=== PATIENT | male | born 1945 | race Caucasian/White ===

== ENCOUNTER 2017-05-20 18:27 | Observation (INO) | payer OTHER ==
[~2017-05-20] VITALS: Ht 172.7 cm; Wt 123.0 kg
[~2017-05-20 18:27] MED LIST: PAXIL40 MG PO; SEROQUEL12.5 MG PO
[2017-05-20 20:23] LABS: CHLORIDE 97 mEq/L (99-109)
[2017-05-20 20:26] LABS: ANION GAP 12 MEQ/L (2-14)
[2017-05-20 20:27] LABS: SODIUM 130 mEq/L (136-147)
[2017-05-20 20:29] LABS: GFR ESTIMATE (CALCULATED) 35 mL/min/
[2017-05-20 20:30] LABS: UREA NITROGEN (BUN) 53 mg/dL (9-23)
[2017-05-20 20:42] LABS: GLUCOSE 589 mg/dL (70-99)
[2017-05-20 21:07] LABS: SAMPLE HEMOLYSIS CHECK 0; SAMPLE ICTERIC CHECK 0; SAMPLE LIPEMIA CHECK 0
[2017-05-20 21:26] LABS: HEMATOCRIT 36.5 % (38.0-50.0); MCH 28.5 PG (29.0-34.0); MCHC 34.2 G/DL (30.0-36.0); MCV 83.1 FL (86-99); MEAN PLAT.VOLUME 11.6 uM^3 (9.0-12.4); PLATELET COUNT 242 K/uL (156-360); RBC DIS.WIDTH-CV 11.7 % (11.8-14.6); RBC DIS.WIDTH-SD 35.4 % (39-53); RED BLOOD COUNT 4.39 M/uL (4.00-5.50); WHITE BLOOD COUNT 6.4 K/uL (4.1-10.2)
[2017-05-20 21:28] LABS: ADD MIUA? YES; BILIRUBIN NEGATIVE; BLOOD SMALL; COLOR STRAW ((YELLOW)); GLUCOSE (STRIP) >=500; KETONES NEGATIVE; LEUKOCYTES NEGATIVE; NITRITE NEGATIVE; PROTEIN (STRIP) NEGATIVE; SPECIFIC GRAVITY 1.023 (1.000-1.030); UROBILINOGEN 0.2 MG/DL (0.2-1.0)
[2017-05-20 21:33] LABS: BACTERIA NONE SEEN /HPF; EPITHELIAL CELLS NONE SEEN /HPF; MUCUS NONE SEEN /LPF; RED BLOOD CELLS 0-5 /HPF (0-5); UCUL ADDED? YES
[2017-05-20] MEDS ORDERED: ASPIRIN325 MG PO (23:28)
[2017-05-20] MEDS ORDERED: GARLIC500 MG PO (23:29)
[2017-05-20] MEDS ORDERED: NOVOLOG100 UNIT/1 SC (23:30)
[2017-05-20] MEDS ORDERED: FENOFIBRATE160 M1 PO (23:32)
[2017-05-20] MEDS ORDERED: CINNAMON BARK500 MG PO (23:33)
[2017-05-20] MEDS ORDERED: LANTUS 3 M100 UNITS1 SC (23:35)
[2017-05-20] MEDS ORDERED: DOXAZOSIN MESYLA2 MG PO (23:36)
[2017-05-20] MEDS ORDERED: TELMISARTAN-AM1 EACH PO (23:36)
[2017-05-20] MEDS ORDERED: VICTOZA 2-0.6 MG/0.1 SC (23:37)
[2017-05-20] MEDS ORDERED: LOSARTAN POTASS50 MG PO (23:37)
[2017-05-21 02:15] LABS: POINT-OF-CARE METER ID UU13113702
[2017-05-21 03:41] VITALS: BP 178/79
[2017-05-21 04:34] LABS: POINT-OF-CARE METER ID UU13113700
[2017-05-21 04:53] VITALS: BP 188/77
[2017-05-21 05:33] LABS: POINT-OF-CARE METER ID UU13113700
[2017-05-21 07:29] LABS: Estimated Average Glucose 266 mg/dL (70-123)
[2017-05-21 08:02] LABS: HEMOGLOBIN A1c (GLYCOHEMOGLOB) 10.9 % HGB (Below 5.7)
[2017-05-21 08:30] VITALS: BP 176/80
[2017-05-21 09:21] LABS: HEMATOCRIT 34.9 % (38.0-50.0); MCH 28.1 PG (29.0-34.0); MCHC 33.5 G/DL (30.0-36.0); MCV 83.7 FL (86-99); MEAN PLAT.VOLUME 11.4 uM^3 (9.0-12.4); PLATELET COUNT 233 K/uL (156-360); RBC DIS.WIDTH-CV 11.8 % (11.8-14.6); RED BLOOD COUNT 4.17 M/uL (4.00-5.50); WHITE BLOOD COUNT 6.3 K/uL (4.1-10.2)
[2017-05-21 09:46] LABS: ANION GAP 6 MEQ/L (2-14); GLUCOSE 296 mg/dL (70-99); POTASSIUM 4.3 MEQ/L (3.7-5.4); SAMPLE HEMOLYSIS CHECK 0; SAMPLE ICTERIC CHECK 0; SAMPLE LIPEMIA CHECK 0; SODIUM 136 MEQ/L (136-147); UREA NITROGEN (BUN) 35 mg/dL (9-23)
[2017-05-21 09:52] LABS: CHLORIDE 104 MEQ/L (99-109); GFR ESTIMATE (CALCULATED) 58 mL/min/
[2017-05-21 13:22] LABS: POINT-OF-CARE METER ID UU13113700
[2017-05-21 16:49] VITALS: BP 171/68
[2017-05-21 18:01] LABS: POINT-OF-CARE METER ID UU13113700
[2017-05-21 20:00] VITALS: BP 132/61
[2017-05-21 23:33] VITALS: BP 138/63
[2017-05-21 23:48] LABS: POINT-OF-CARE METER ID UU13113700
[2017-05-22 05:29] LABS: HEMATOCRIT 36.3 % (38.0-50.0); MCH 27.9 PG (29.0-34.0); MCHC 32.8 G/DL (30.0-36.0); MEAN PLAT.VOLUME 11.1 uM^3 (9.0-12.4); PLATELET COUNT 242 K/uL (156-360); RBC DIS.WIDTH-SD 36.8 % (39-53); RED BLOOD COUNT 4.27 M/uL (4.00-5.50); WHITE BLOOD COUNT 6.7 K/uL (4.1-10.2)
[2017-05-22 06:09] LABS: ANION GAP 7 MEQ/L (2-14); CHLORIDE 106 MEQ/L (99-109); GFR ESTIMATE (CALCULATED) 42 mL/min/; GLUCOSE 145 mg/dL (70-99); POTASSIUM 4.4 MEQ/L (3.7-5.4); SAMPLE HEMOLYSIS CHECK 0; SAMPLE ICTERIC CHECK 0; SAMPLE LIPEMIA CHECK 0; SODIUM 135 MEQ/L (136-147); UREA NITROGEN (BUN) 33 mg/dL (9-23)
[2017-05-22 08:10] VITALS: BP 107/58
[2017-05-22 08:47] LABS: POINT-OF-CARE METER ID UU13113831
[2017-05-22] MEDS ORDERED: NOVOLOG 10100 UNITS/ SC (12:46)
[2017-05-22] MEDS ORDERED: LEVEMIR100 UNIT/2 SC (12:46)
[2017-05-22] MEDS ORDERED: INVANZ1 GM IV (12:49)
[2017-05-22 12:54] LABS: POINT-OF-CARE METER ID UU14162513
[2017-05-22 13:12] VITALS: BP 177/85
[2017-05-22 15:45] VITALS: BP 123/61
[2017-05-22 15:58] LABS: POINT-OF-CARE METER ID UU14162513
== END 2017-05-22 16:00 ==
LOC: EME 18:27 → EDOF 05-21 01:34 → 5WEST 05-21 01:34 → EDOF 05-21 01:34 → ENRESERV 05-21 01:39 → 5WEST 05-21 03:30 → ENPENDDIS 05-22 16:00 → 5WEST 05-22 16:00
PROVIDERS: Emergency Medicine; Hospitalist; Physician Assistant Medical
DX: E11.65 Type 2 diabetes mellitus with hyperglycemia (principal); T38.3X6A Underdosing of insulin and oral hypoglycemic [antidiabetic] drugs, initial encounter; Z91.128 Patient's intentional underdosing of medication regimen for other reason; S80.212A Abrasion, left knee, initial encounter; S80.211A Abrasion, right knee, initial encounter; W19.XXXA Unspecified fall, initial encounter; Z91.81 History of falling; Y93.89 Activity, other specified; Y92.230 Patient room in hospital as the place of occurrence of the external cause; E86.0 Dehydration; N17.9 Acute kidney failure, unspecified; E87.5 Hyperkalemia; K21.9 Gastro-esophageal reflux disease without esophagitis; D64.9 Anemia, unspecified; E87.1 Hypo-osmolality and hyponatremia; E66.01 Morbid (severe) obesity due to excess calories; I12.9 Hypertensive chronic kidney disease with stage 1 through stage 4 chronic kidney disease, or unspecified chronic kidney disease; E11.22 Type 2 diabetes mellitus with diabetic chronic kidney disease; N18.9 Chronic kidney disease, unspecified; J11.1 Influenza due to unidentified influenza virus with other respiratory manifestations; E78.5 Hyperlipidemia, unspecified; Z79.82 Long term (current) use of aspirin; Z85.820 Personal history of malignant melanoma of skin; Z79.4 Long term (current) use of insulin; Z91.09 Other allergy status, other than to drugs and biological substances; Z88.8 Allergy status to other drugs, medicaments and biological substances
CPT/HCPCS: 71010; 80048; 81003; 82010; 82803; 82948; 83036; 83605; 85027; 87086; 87106; 87502; 99281; 99285; G0378; G8978 GP CJ; G8979 GP CI; G8980 CJ; G8987 GO CJ; G8988 CI; G8989 CJ; J0360; J1335; J1644; J1815; J2405; J7030; J7050

== ENCOUNTER 2017-05-22 16:14 | Inpatient (IN) | payer OTHER ==
[~2017-05-22] VITALS: Ht 172.7 cm; Wt 112.2 kg
[~2017-05-22 16:14] MED LIST changes: +ASPIRIN325 MG PO; +CINNAMON BARK500 MG PO; +DOXAZOSIN MESYLA2 MG PO; +FENOFIBRATE160 M1 PO; +GARLIC500 MG PO; +INVANZ1 GM IV; +LANTUS 3 M100 UNITS1 SC; +LEVEMIR100 UNIT/2 SC; +LOSARTAN POTASS50 MG PO; +NOVOLOG 10100 UNITS/ SC; +NOVOLOG100 UNIT/1 SC; +TELMISARTAN-AM1 EACH PO; +VICTOZA 2-0.6 MG/0.1 SC
[2017-05-22 16:35] VITALS: BP 128/82
[2017-05-22 21:21] LABS: POINT-OF-CARE METER ID UU13113720
[2017-05-23 02:34] VITALS: BP 144/70
[2017-05-23 06:13] LABS: HEMATOCRIT 34.6 % (38.0-50.0); MCH 28.2 PG (29.0-34.0); MCHC 32.7 G/DL (30.0-36.0); MCV 86.3 FL (86-99); MEAN PLAT.VOLUME 11.4 uM^3 (9.0-12.4); PLATELET COUNT 220 K/uL (156-360); RBC DIS.WIDTH-CV 12.1 % (11.8-14.6); RBC DIS.WIDTH-SD 38.5 % (39-53); RED BLOOD COUNT 4.01 M/uL (4.00-5.50); WHITE BLOOD COUNT 4.8 K/uL (4.1-10.2)
[2017-05-23 06:17] VITALS: BP 143/67
[2017-05-23 06:55] LABS: ALKALINE PHOSPHATASE 74 IU/L (3-129); ANION GAP 6 MEQ/L (2-14); CHLORIDE 107 MEQ/L (99-109); GFR ESTIMATE (CALCULATED) 37 mL/min/; GLUCOSE 144 mg/dL (70-99); POTASSIUM 4.6 MEQ/L (3.7-5.4); SAMPLE HEMOLYSIS CHECK 0; SAMPLE ICTERIC CHECK 0; SAMPLE LIPEMIA CHECK 0; SODIUM 137 MEQ/L (136-147); TOTAL BILIRUBIN 0.3 MG/DL (0.0-1.0); UREA NITROGEN (BUN) 40 mg/dL (9-23)
[2017-05-23 08:01] LABS: POINT-OF-CARE METER ID UU14174215; POINT-OF-CARE USER ID AHSSSJB31
[2017-05-23 10:50] LABS: POINT-OF-CARE METER ID UU14174215
[2017-05-23 11:15] LABS: POINT-OF-CARE METER ID UU13113720; POINT-OF-CARE USER ID AHSSSJB31
[2017-05-23 15:49] VITALS: BP 128/56
[2017-05-23 16:32] LABS: POINT-OF-CARE METER ID UU13113720
[2017-05-23 21:20] LABS: POINT-OF-CARE METER ID UU14174215
[2017-05-24 05:24] VITALS: BP 14/62
[2017-05-24 07:02] LABS: POINT-OF-CARE METER ID UU14174215; POINT-OF-CARE USER ID ENVGAF
[2017-05-24 07:30] LABS: UREA NITROGEN (BUN) 39 mg/dL (9-23)
[2017-05-24 07:31] LABS: ANION GAP 5 MEQ/L (2-14); CHLORIDE 109 MEQ/L (99-109); GFR ESTIMATE (CALCULATED) 40 mL/min/; POTASSIUM 4.4 MEQ/L (3.7-5.4); SAMPLE HEMOLYSIS CHECK 0; SAMPLE ICTERIC CHECK 0; SAMPLE LIPEMIA CHECK 0; SODIUM 140 MEQ/L (136-147)
[2017-05-24 07:32] LABS: GLUCOSE 105 mg/dL (70-99)
[2017-05-24 12:04] LABS: POINT-OF-CARE METER ID UU14174215; POINT-OF-CARE USER ID ENVGAF
[2017-05-24 15:51] VITALS: BP 130/60
[2017-05-24 16:29] LABS: POINT-OF-CARE METER ID UU13113720
[2017-05-24 21:04] LABS: POINT-OF-CARE METER ID UU14174215
[2017-05-25 05:24] VITALS: BP 139/60
[2017-05-25 07:08] LABS: POINT-OF-CARE METER ID UU14174215; POINT-OF-CARE USER ID ENVGAF
[2017-05-25 11:17] LABS: POINT-OF-CARE METER ID UU14174215; POINT-OF-CARE USER ID ENVGAF
[2017-05-25 17:00] LABS: POINT-OF-CARE METER ID UU14174215; POINT-OF-CARE USER ID 609231305
[2017-05-25 17:05] VITALS: BP 151/69
[2017-05-25 21:42] LABS: POINT-OF-CARE METER ID UU13113720
[2017-05-26 04:48] VITALS: BP 122/75
[2017-05-26 07:04] LABS: POINT-OF-CARE METER ID UU14174215; POINT-OF-CARE USER ID AHSSSJB31
[2017-05-26 11:43] LABS: POINT-OF-CARE METER ID UU14174215; POINT-OF-CARE USER ID AHSSSJB31
[2017-05-26 15:30] VITALS: BP 145/65
[2017-05-26 16:22] LABS: POINT-OF-CARE METER ID UU14174215; POINT-OF-CARE USER ID 609231305
[2017-05-26 21:40] LABS: POINT-OF-CARE METER ID UU14174215
[2017-05-27 05:11] VITALS: BP 118/63
[2017-05-27 07:23] LABS: HEMATOCRIT 37.9 % (38.0-50.0); MCH 27.5 PG (29.0-34.0); MCHC 31.7 G/DL (30.0-36.0); MCV 86.7 FL (86-99); MEAN PLAT.VOLUME 11.8 uM^3 (9.0-12.4); PLATELET COUNT 232 K/uL (156-360); RBC DIS.WIDTH-CV 12.3 % (11.8-14.6); RBC DIS.WIDTH-SD 39.4 % (39-53); RED BLOOD COUNT 4.37 M/uL (4.00-5.50); WHITE BLOOD COUNT 5.7 K/uL (4.1-10.2)
[2017-05-27 07:43] LABS: POINT-OF-CARE METER ID UU14174215
[2017-05-27 08:01] LABS: ALKALINE PHOSPHATASE 74 IU/L (3-129); ANION GAP 7 MEQ/L (2-14); CHLORIDE 110 MEQ/L (99-109); GFR ESTIMATE (CALCULATED) 40 mL/min/ (58.99-99999); GLUCOSE 54 mg/dL (70-99); POTASSIUM 4.7 MEQ/L (3.7-5.4); SAMPLE HEMOLYSIS CHECK 1; SAMPLE ICTERIC CHECK 0; SAMPLE LIPEMIA CHECK 0; SODIUM 142 MEQ/L (136-147); TOTAL BILIRUBIN 0.3 MG/DL (0.0-1.0); UREA NITROGEN (BUN) 38 mg/dL (9-23)
[2017-05-27 08:10] LABS: POINT-OF-CARE METER ID UU14174215
[2017-05-27 08:53] LABS: POINT-OF-CARE METER ID UU14174215
[2017-05-27 11:55] LABS: POINT-OF-CARE METER ID UU13113720; POINT-OF-CARE USER ID AHSSSJB31
[2017-05-27 16:08] VITALS: BP 143/66
[2017-05-27 16:39] LABS: POINT-OF-CARE METER ID UU14174215
[2017-05-27 21:35] LABS: POINT-OF-CARE METER ID UU13113720
[2017-05-28 06:21] VITALS: BP 146/79
[2017-05-28 07:40] LABS: POINT-OF-CARE METER ID UU14174215
[2017-05-28 11:26] LABS: POINT-OF-CARE METER ID UU14174215
[2017-05-28 16:02] VITALS: BP 107/53
[2017-05-28 16:37] LABS: POINT-OF-CARE METER ID UU13113720
[2017-05-28 21:06] LABS: POINT-OF-CARE METER ID UU14174215
[2017-05-29 05:06] VITALS: BP 126/60
[2017-05-29 07:19] LABS: POINT-OF-CARE METER ID UU14174215; POINT-OF-CARE USER ID ENVGAF
[2017-05-29 07:54] LABS: POINT-OF-CARE METER ID UU14174215; POINT-OF-CARE USER ID ENVGAF
[2017-05-29 09:32] LABS: POINT-OF-CARE METER ID UU14174215
[2017-05-29 11:44] LABS: POINT-OF-CARE METER ID UU14174215; POINT-OF-CARE USER ID ENVGAF
[2017-05-29] MEDS ORDERED: AMLODIPINE BESY10 MG PO (11:56)
[2017-05-29] MEDS ORDERED: TYLENOL REGULA325 MG PO (11:57)
[2017-05-29] MEDS ORDERED: FAMOTIDINE20 MG PO (11:57)
[2017-05-29] MEDS ORDERED: LOSARTAN POTASS50 MG PO (11:57)
[2017-05-29] MEDS ORDERED: LEVEMIR100 UNIT/2 SC (11:58)
== END 2017-05-29 13:51 | DRG 945 ==
LOC: 3WEST 16:14
PROVIDERS: Physical Medicine & Rehabilitation Pain Medicine
PROC: F07M0ZZ Range of Motion and Joint Mobility Treatment of Musculoskeletal System - Whole Body (ICD-10-PCS; principal; 2017-05-22)
DX: R53.1 Weakness (principal); E11.65 Type 2 diabetes mellitus with hyperglycemia; E78.5 Hyperlipidemia, unspecified; E11.21 Type 2 diabetes mellitus with diabetic nephropathy; E11.42 Type 2 diabetes mellitus with diabetic polyneuropathy; B96.20 Unspecified Escherichia coli [E. coli] as the cause of diseases classified elsewhere; Z87.891 Personal history of nicotine dependence; E87.1 Hypo-osmolality and hyponatremia; F43.10 Post-traumatic stress disorder, unspecified; G47.30 Sleep apnea, unspecified; D64.9 Anemia, unspecified; B37.49 Other urogenital candidiasis; G89.29 Other chronic pain; F31.9 Bipolar disorder, unspecified; E66.9 Obesity, unspecified; Z68.37 Body mass index [BMI] 37.0-37.9, adult; I10 Essential (primary) hypertension; K21.9 Gastro-esophageal reflux disease without esophagitis; E55.9 Vitamin D deficiency, unspecified; R26.2 Difficulty in walking, not elsewhere classified
CPT/HCPCS: 70450; 80053; 80069; 82140; 82948; 85027; 92523 GN; 95819; 97110 GO; 97530 GP; J1335; J1650; J1815; J7050